=== PATIENT | female | born 1960 | race Caucasian/White ===

== ENCOUNTER 2017-05-05 13:44 | Outpatient (CLI) | payer OTHER ==
[~2017-05-05 13:44] MED LIST: TOPROL XL25 MG
== END 2017-05-05 13:51 | disposition home or self-care (01) ==
LOC: RAD 13:44
DX: M12.9 Arthropathy, unspecified (principal); M19.90 Unspecified osteoarthritis, unspecified site

== ENCOUNTER 2024-11-06 10:30 | Inpatient (IN) | payer OTHER ==
[~2024-11-06] VITALS: Ht 61 cm; Wt 60.3 kg
[~2024-11-06 10:30] MED LIST changes: +TOPROL XL100 M1 PO; -TOPROL XL25 MG
[2024-11-06 13:19] LABS: RH POSITIVE
[2024-11-06] MEDS ORDERED: LYRICA100 MG PO (14:38)
[2024-11-06] MEDS ORDERED: ALPRAZOLAM ODT1 MG PO (14:39)
[2024-11-06] MEDS ORDERED: DICY20TA (14:39)
[2024-11-06] MEDS ORDERED: PROAIR RESPICL90 MCG (14:39)
[2024-11-06] MEDS ORDERED: LEVOTHYROXINE25 MCG PO (14:40)
[2024-11-06] MEDS ORDERED: ED-SPAZ0.125 MG PO (14:41)
[2024-11-14] MEDS ORDERED: CEFTRIAXONE SODIUM 2,000 MG VIAL ONE (08:31)
[2024-11-14] MEDS ORDERED: METRONIDAZOLE/SODIUM CHLORIDE 500 MG/100 ML PIGGYBACK IV ONE (08:31)
[2024-11-14] MEDS ORDERED: HEMOSTATIC MATRIX 1 KIT KIT TOP ONE (11:00)
[2024-11-14] MEDS ORDERED: SURGIFLO APPLICATOR 1 EACH APPL TOP ONE (11:00)
[2024-11-14] MEDS ORDERED: ONDANSETRON HCL 2 MG/ML VIAL IV PRN (12:15)
[2024-11-14] MEDS ORDERED: RINGERS SOLUTION,LACTATED 1,000 ML IV SCH (12:15)
[2024-11-14] MEDS ORDERED: DEXTROSE 50 % IN WATER 0.5 G/ML VIAL IV PRN (12:15)
[2024-11-14] MEDS ORDERED: MORPHINE SULFATE 4 MG/ML CARTRIDGE IV PRN (12:15)
[2024-11-14] MEDS ORDERED: OxyCODONE HCL 5 MG TABLET (ROXICODONE) PO PRN (12:15)
[2024-11-14] MEDS ORDERED: SIMETHICONE 125 MG CAPSULE PO SCH (13:00)
[2024-11-14] MEDS ORDERED: HYOSCYAMINE SULFATE 0.125 MG TAB.SUBL SL SCH (13:00)
[2024-11-14] MEDS ORDERED: ACETAMINOPHEN 500 MG GEL..CAP PO SCH (14:00)
[2024-11-14] MEDS ORDERED: hydrALAZINE HCL 20 MG VIAL IV PRN (14:00)
[2024-11-14 14:26] LABS: BASO % 0.2 % (0.1-1.2); EOS # 0.05 (0.04-0.54); EOS % 0.3 % (0.7-7.0); LYMPH # 1.77 (1.18-3.74); LYMPH % 10.5 % (19.3-53.1); MEAN PLATELET VOLUME 10.10 fl (9.4-12.4); MONO # 1.03 (0.24-0.82); MONO % 6.1 % (4.7-12.5); NEUT # 13.97 (1.56-6.13); NEUT % 82.5 % (34.0-71.1); RED CELL DISTRIBUTION WIDTH 16.5 % (11.6-14.4)
[2024-11-14 14:45] LABS: BUN CREA RATIO 16.0 (7.0-25.0); CREATININE SERUM 0.67 mg/dL (0.55-1.02); GFR 88.89; GLUCOSE FASTING 136.0 mg/dL (65-100); OSMOLALITY SERUM 285.0 MOSM/KG (275-295)
[2024-11-14 16:00] VITALS: BP 101/66; O2SAT 95
[2024-11-14] MEDS ORDERED: METOCLOPRAMIDE HCL 5 MG/ML VIAL IV SCH (17:00)
[2024-11-14] MEDS ORDERED: GABAPENTIN 300 MG CAPSULE PO SCH (17:00)
[2024-11-14] MEDS ORDERED: FAMOTIDINE/PF 20 MG/2 ML VIAL IV PUSH SCH (21:00)
[2024-11-14] MEDS ORDERED: CELECOXIB 200 MG CAPSULE PO SCH (21:00)
[2024-11-14] MEDS ORDERED: DILTIAZEM HCL 120 MG CAP.SR.24H PO SCH (21:00)
[2024-11-15 04:12] VITALS: BP 104/58; O2SAT 97
[2024-11-15 05:18] LABS: BASO % 0.2 % (0.1-1.2); EOS # 0.08 (0.04-0.54); EOS % 0.6 % (0.7-7.0); LYMPH # 2.20 (1.18-3.74); LYMPH % 15.3 % (19.3-53.1); MEAN PLATELET VOLUME 10.30 fl (9.4-12.4); MONO # 1.15 (0.24-0.82); MONO % 8.0 % (4.7-12.5); NEUT # 10.88 (1.56-6.13); NEUT % 75.6 % (34.0-71.1); RED CELL DISTRIBUTION WIDTH 16.6 % (11.6-14.4)
[2024-11-15 05:29] LABS: BUN CREA RATIO 18.0 (7.0-25.0); CREATININE SERUM 0.61 mg/dL (0.55-1.02); GFR 99.06; GLUCOSE FASTING 99.0 mg/dL (65-100); OSMOLALITY SERUM 284.0 MOSM/KG (275-295)
[2024-11-15] MEDS ORDERED: LEVOTHYROXINE SODIUM 25 MCG TABLET PO SCH (06:00)
[2024-11-15 08:00] VITALS: BP 98/51; O2SAT 95
[2024-11-15] MEDS ORDERED: MAGNESIUM SULFATE IN WATER 50 ML IV ONE (08:15)
[2024-11-15] MEDS ORDERED: LACTOBACILLUS ACIDOPHILUS 1 CAP CAP PO SCH (09:00)
[2024-11-15] MEDS ORDERED: LACTULOSE 20 G/30 ML BLIST.PACK PO SCH (09:00)
[2024-11-15] MEDS ORDERED: METOPROLOL SUCCINATE 100 MG TAB.SR.24H PO SCH (09:00)
[2024-11-15] MEDS ORDERED: Cyanocobalamin/Mecobalamin 1 TAB.SL SL SCH (09:00)
[2024-11-15] MEDS ORDERED: SOD FERRIC GLUC COMPLX/SUCROSE 62.5 MG in 0.9 % SODIUM CHLORIDE 50 ML IV SCH (09:00)
[2024-11-15] MEDS ORDERED: AMINO ACIDS 1 EACH TABLET PO SCH (17:00)
[2024-11-15] MEDS ORDERED: ENOXAPARIN SODIUM 40 MG/0.4 ML SYRINGE SUBCUTANEO SCH (17:00)
[2024-11-15 17:39] VITALS: BP 100/63; BP 146/68; O2SAT 95
[2024-11-16 01:22] VITALS: BP 106/61; O2SAT 98
[2024-11-16 06:44] LABS: BASO % 0.4 % (0.1-1.2); EOS # 0.19 (0.04-0.54); EOS % 1.3 % (0.7-7.0); LYMPH # 2.05 (1.18-3.74); LYMPH % 14.4 % (19.3-53.1); MEAN PLATELET VOLUME 10.60 fl (9.4-12.4); MONO # 0.96 (0.24-0.82); MONO % 6.8 % (4.7-12.5); NEUT # 10.89 (1.56-6.13); NEUT % 76.7 % (34.0-71.1); RED CELL DISTRIBUTION WIDTH 16.4 % (11.6-14.4)
[2024-11-16 07:04] LABS: BUN CREA RATIO 19.0 (7.0-25.0); CREATININE SERUM 0.57 mg/dL (0.55-1.02); GFR 107.13; GLUCOSE FASTING 82.0 mg/dL (65-100); OSMOLALITY SERUM 282.0 MOSM/KG (275-295)
[2024-11-16] MEDS ORDERED: ENOXAPARIN SODIUM 40 MG/0.4 ML SYRINGE SUBCUTANEO SCH (09:00)
[2024-11-16 11:03] VITALS: BP 129/70; O2SAT 93
[2024-11-16 16:00] VITALS: BP 113/72; O2SAT 99
[2024-11-16] MEDS ORDERED: TRAMADOL HCL 50 MG TABLET PO PRN (20:15)
[2024-11-16] MEDS ORDERED: POLYETHYLENE GLYCOL 3350 17 GM BLIST.PACK PO SCH (21:00)
[2024-11-17 01:58] VITALS: BP 117/74; O2SAT 99
[2024-11-17 06:56] LABS: BASO % 0.3 % (0.1-1.2); EOS # 0.36 (0.04-0.54); EOS % 3.0 % (0.7-7.0); LYMPH # 1.96 (1.18-3.74); LYMPH % 16.3 % (19.3-53.1); MEAN PLATELET VOLUME 11.10 fl (9.4-12.4); MONO # 1.03 (0.24-0.82); MONO % 8.6 % (4.7-12.5); NEUT # 8.56 (1.56-6.13); NEUT % 71.4 % (34.0-71.1); RED CELL DISTRIBUTION WIDTH 16.5 % (11.6-14.4)
[2024-11-17 07:16] LABS: BUN CREA RATIO 18.0 (7.0-25.0); CREATININE SERUM 0.5 mg/dL (0.55-1.02); GFR 124.61; GLUCOSE FASTING 85.0 mg/dL (65-100); OSMOLALITY SERUM 287.0 MOSM/KG (275-295)
[2024-11-17 09:00] VITALS: BP 140/82; O2SAT 95
[2024-11-17] MEDS ORDERED: POLYETHYLENE GLYCOL 3350 17 GM BLIST.PACK PO NR (10:15)
== END 2024-11-17 16:21 | disposition home or self-care (01) | DRG 330 ==
LOC: O/R 11-14 06:00 → SURG 11-14 09:45 → SURH 11-14 13:08
PROVIDERS: Internal Medicine Geriatric Medicine; ADMIT Surgery; ATTEND Surgery
PROC: 0DBP4ZZ Excision of Rectum, Percutaneous Endoscopic Approach (ICD-10-PCS; 2024-11-14)
PROC: 0DTN4ZZ Resection of Sigmoid Colon, Percutaneous Endoscopic Approach (ICD-10-PCS; principal; 2024-11-14 09:45)
DX: K57.32 Diverticulitis of large intestine without perforation or abscess without bleeding (principal); K55.1 Chronic vascular disorders of intestine; I10 Essential (primary) hypertension